=== PATIENT | male | born 1995 | race Caucasian/White ===

== ENCOUNTER 2016-12-29 20:00 | Emergency (ER) | payer OTHER ==
--- NOTE | ~2016-12-29 | ER ---
PATIENT'S NAME: Tiffani [facility]JIA [facility] AGE: 21 Y [address] ROOM: [place] [id number] LOCATION: [facility] ADMIT DATE: 12/29/2016 ER/Outpatient Report DISCHARGE DATE: FAMILY PHYSICIAN: PHYSICIAN, KALE ATTENDING PHYSICIAN: Shanelle Yoder TIME SEEN: 2015 hours. HISTORY OF PRESENT ILLNESS: The patient is a 21-year-old male who presents complaining of cold-like symptoms to include nasal congestion, body aches, and cough. Symptoms started within the last 24 hours. ALLERGIES: HE HAS BEEN USING AN [id number] COUGH AND COLD MEDICATION. SUPPOSEDLY, HE IS ALLERGIC TO ANTIHISTAMINES. MEDICAL HISTORY: No chronic health issues such as diabetes. SURGERIES: He has had previous jaw surgery. SOCIAL HISTORY: Chews about a can every 2-3 days. No alcohol. Works at [employer]. REVIEW OF SYSTEMS: Today, GENERAL: Fevers. Head AND EENT: Nasal congestion. Had a sore throat yesterday, somewhat today. RESPIRATORY: Occasional cough. GASTROINTESTINAL: Some nausea. No diarrhea. GENITOURINARY: No dysuria. PHYSICAL EXAMINATION: VITAL SIGNS: He had a temperature of 101.2, his respiratory rate 16, pulse 87, his blood pressure 129/65, and his O2 saturation is 96%. GENERAL APPEARANCE: He appeared somewhat lethargic but oriented. HEENT: Eyes: PERRL. No icterus. Ears: Auditory canals clear. TMs intact. Nose: Mucosa congested. Clear rhinorrhea present. Throat: Slightly red. NECK: Slightly tender anterior nodes, especially on the right. LUNGS: Sounded clear peripherally. HEART: No murmurs. PATIENT'S NAME: Tiffani MEJIA [facility] AGE: 21 Y [address] ROOM: [place] [address] LOCATION: [facility] ADMIT DATE: 12/29/2016 ER/Outpatient Report DISCHARGE DATE: FAMILY PHYSICIAN: PHYSICIAN, KALE ATTENDING PHYSICIAN: Shanelle Yoder ABDOMEN: Soft and nontender. DIAGNOSTIC DATA: Chest x-ray: No obvious infiltrates present. His CBC: White count 9000, his hemoglobin 15, and his ANC was 7.8. ASSESSMENT: 1. Upper respiratory infection. 2. Fever. PLAN: Encourage fluids. Continue Tylenol or ibuprofen for fevers greater than 101. Follow up if he does not continue to improve. GALEN CALERO FOR MD ASHLEY GUSMAN/modl /[id number] d: 12/30/16 0206 t: 01/12/17 1210, OUTPATIENT REPORT
[2016-12-29 20:49] LABS: BASOPHIL % 0.2 %; EOSINOPHIL # 0.1 K/uL (0.0-0.5); EOSINOPHIL % 0.7 %; HEMATOCRIT 42.9 % (37.0-53.0); IMMATURE GRANULOCYTE % 0.3 %; LYMPHOCYTE # 0.5 K/uL (0.8-4.0); LYMPHOCYTE % 5.6 %; MCH 29.3 pg (27.0-34.0); MCV 83.8 fl (83.0-98.0); MONOCYTE # 0.6 K/uL (0.0-1.0); MONOCYTE % 6.5 %; MPV 9.1 fl (9.4-12.4); NEUTROPHIL # (ANC) 7.8 K/uL (1.4-9.0); NEUTROPHIL % 86.7 %; NRBC % 0 /100WBC (0-0.00); PLATELET COUNT 179 K/uL (150-450); RBC 5.12 M/uL (4.00-6.00); RDW-CV 11.5 % (11.9-14.6)
== END 2016-12-29 21:23 | disposition disaster alternative care site (69) ==
LOC: GMED 20:00
PROVIDERS: Emergency Medicine
DX: J06.9 Acute upper respiratory infection, unspecified (principal); F17.220 Nicotine dependence, chewing tobacco, uncomplicated; Z88.8 Allergy status to other drugs, medicaments and biological substances; Z98.890 Other specified postprocedural states; Z79.899 Other long term (current) drug therapy